=== PATIENT | female | born 1995 | race Hispanic/Latino ===

== ENCOUNTER 2018-07-22 09:37 | Emergency (ER) | payer SELFPAY ==
[2018-07-22] MEDS ORDERED: PROTONIX IV ONE ×2 (10:01→11:19)
[2018-07-22] MEDS ORDERED: ZOFRAN IV ONE ×2 (10:01→10:55)
[2018-07-22] MEDS ORDERED: NACL 0.9% 1000 ML 1,000 ML IV ONE (10:01)
--- NOTE | 2018-07-22 10:04 | Emergency Department Report ---
HPI - General Chief Complaint: Abdominal Pain Time Seen by Provider: 07/22/18 09:55 - HPI HPI: 22-year-old female presents to the emergency department with complaint of middle abdominal pain, mostly on the right side, that has been going on since last night. It is associated with some nausea without vomiting. She has a diagnosed history of IBS. She also has a history of PTSD that manifests at least partially as abdominal pain. She follows with [facility], Dr. Hugo. She says that she sometimes will be on acid reducers, PPI, for her symptoms but does not have any of that medication at this time. She also takes Trileptal and Lexapro for the PTSD but thinks it may be the medication is not as effective. She denies any recent diarrhea, constipation, dysuria, vaginal bleeding or discharge, fever. ED Past Medical Hx - Past Medical History Additional medical history: IBS, GERD PTSD - Surgical History Past Surgical History?: No - Social History Smoking Status: Former Smoker Substance Use Type: None - Medications Home Medications: Home Medications Medication Instructions Recorded Confirmed Last Taken Type Doxycycline [Vibramycin CAP] 100 mg PO Q12HR #14 capsule 07/22/18 Unknown Rx Ondansetron [Zofran Odt] 4 mg PO Q8HR PRN #20 tab.rapdis 07/22/18 Unknown Rx Pantoprazole [Protonix] 40 mg PO QDAY #20 tablet 07/22/18 Unknown Rx ED Review of Systems ROS: Stated complaint: ABD PAIN Other details as noted in HPI Comment: All other systems reviewed and negative Constitutional: denies: chills, fever Eyes: denies: eye pain, vision change ENT: denies: ear pain, throat pain Respiratory: denies: cough, shortness of breath Cardiovascular: denies: chest pain, palpitations Gastrointestinal: abdominal pain, nausea. denies: vomiting Genitourinary: denies: dysuria, discharge Musculoskeletal: denies: back pain, arthralgia Skin: denies: rash, lesions Neurological: denies: headache, numbness Physical Exam - Physical Exam Vital Signs: Vital Signs 07/22/18 09:39 Temperature 98 F Pulse Rate 84 Respiratory 18 Rate Blood Pressure 129/81 O2 Sat by Pulse 95 Oximetry Physical Exam: GENERAL: The patient is well-developed well-nourished. HEENT: Normocephalic. Atraumatic. Patient has moist mucous membranes. EYES: Extraocular motions are intact. NECK: Supple. Trachea is midline. CHEST/LUNGS: Clear to auscultation. There is no respiratory distress noted. HEART/CARDIOVASCULAR: Regular. There is no tachycardia. There is no obvious murmur. ABDOMEN: Abdomen is soft. Minimal right abdominal tenderness to palpation. No guarding. Patient has normal bowel sounds. There is no abdominal distention. SKIN: Skin is warm and dry. NEURO: The patient is awake, alert, and oriented. The patient is cooperative. The patient has normal speech. MUSCULOSKELETAL: There is no tenderness or deformity. There is no limitation range of motion. There is no evidence of acute injury. ED Course Vital Signs 07/22/18 09:39 Temperature 98 F Pulse Rate 84 Respiratory 18 Rate Blood Pressure 129/81 O2 Sat by Pulse 95 Oximetry ED Medical Decision Making - Lab Data Result diagrams: 07/22/18 10:05 07/22/18 10:05 - Medical Decision Making the patient has a history of irritable bowel syndrome but also has a history of having gastrointestinal issues secondary to PTSD. On examination she has some tenderness to palpation to the right middle abdomen but the abdomen is otherwise soft, nondistended and nontoxic in appearance. Patient's labs have been unremarkable including CBC, CMP, lipase, urinalysis and the patient is not . She was given some IV fluid resuscitation, H2 mallory, PPI and antinausea medication and now is feeling much better. It was later told me that the patient recently was treated for gonorrhea with what sounds like azithromycin but she says that she is still having some greenish discharge. Her Pain is more abdominal than pelvic. She is afebrile and does not have any leukocytosis. This does not appear consistent with PID. She will be placed on doxycycline to further treat this vaginal discharge present STD diagnosis. The patient has good follow-up with gastroenterology and it appears that she is due for a follow-up visit with him. She will be given a prescription for a PPI, Zofran ODT, on top of the antibiotic. I recommended that she pepper picker a probiotic. - Differential Diagnosis IBS, PID, Colitis, Appendicitis, Gastroparesis. Critical Care Time: No Critical care attestation.: If time is entered above; I have spent that time in minutes in the direct care of this critically ill patient, excluding procedure time. 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 Please start taking a probiotic. Return to the emergency Department with any worsening of your symptoms or any acute distress. Avoid any foods that are acidic, tomato-based, spicy, and avoid alcohol. This antibiotic, doxycycline, can make you more susceptible to UV light and/or sunlight and therefore you need to wear sunscreen if you go outside. Prescriptions: Doxycycline [Vibramycin CAP] 100 mg PO Q12HR #14 capsule Ondansetron [Zofran Odt] 4 mg PO Q8HR PRN #20 tab.rapdis PRN Reason: Nausea Pantoprazole [Protonix] 40 mg PO QDAY #20 tablet Referrals: PRIMARY CAREMD [Primary Care Provider] - 3-5 Days ALYSON HUGO MD [Staff Physician] - 3-5 Days Time of Disposition: 12:03
[2018-07-22 10:24] LABS: Basophils % (Auto) 0.8 % (0.0-1.8); Eosinophils # (Auto) 0.1 K/mm3 (0.0-0.4); Eosinophils % (Auto) 1.8 % (0.0-4.3); Hematocrit 37.6 % (30.3-42.9); Hemoglobin 12.7 gm/dl (10.1-14.3); Lymphocytes # (Auto) 2.2 K/mm3 (1.2-5.4); Lymphocytes % (Auto) 34.3 % (13.4-35.0); Mean Corpuscular HGB Conc 34 % (30-34); Mean Corpuscular Volume 98 fl (79-97); Monocytes # (Auto) 0.5 K/mm3 (0.0-0.8); Monocytes % (Auto) 7.8 % (0.0-7.3); Platelet Count 236 K/mm3 (140-440); Red Blood Count 3.85 M/mm3 (3.65-5.03)
[2018-07-22 11:03] LABS: BUN/Creatinine Ratio 22; Blood Urea Nitrogen 13 mg/dL (7-17); Calcium 8.8 mg/dL (8.4-10.2); Hemolysis Index 2
[2018-07-22 11:18] LABS: Bacteria,Urine 2+ /HPF (Negative); Bilirubin,Urine NEG (Negative); Blood,Urine NEG (Negative); Color,Urine Yellow (Yellow); Mucus,Urine 2+ /HPF; Protein,Urine <15 mg/dL mg/dL (Negative); Urobilinogen,Urine < 2.0 mg/dL (<2.0)
[2018-07-22] MEDS ORDERED: PEPCID IV ONE (11:19)
[2018-07-22 11:26] LABS: Alanine Aminotransferase 29 units/L (7-56); Albumin 4.3 g/dL (3.9-5)
[2018-07-22 11:28] LABS: Bilirubin,Direct < 0.2 mg/dL (0-0.2)
[2018-07-22 11:36] VITALS: BP 116/75
== END 2018-07-22 12:20 | disposition home or self-care (01) ==
LOC: ED 09:37
DX: R10.9 Unspecified abdominal pain (principal); R11.0 Nausea; K21.9 Gastro-esophageal reflux disease without esophagitis; F43.10 Post-traumatic stress disorder, unspecified; Z87.19 Personal history of other diseases of the digestive system; Z87.891 Personal history of nicotine dependence
CPT/HCPCS: 36415; 80048; 80076; 81001; 83690; 84703; 85025; 96374; 96375; 96376; 99283; C9113; J2405; J7030

== ENCOUNTER 2018-08-29 07:41 | Emergency (ER) | payer BC, OTHER ==
[2018-08-29] MEDS ORDERED: ZOFRAN ORAL LIQ PO ONE (08:12)
[2018-08-29] MEDS ORDERED: CARAFATE PO STA (08:12)
--- NOTE | 2018-08-29 08:13 | Emergency Department Report ---
ED General Adult HPI - General Chief complaint: Abdominal Pain Stated complaint: VOMITING Time Seen by Provider: 08/29/18 07:57 Source: patient, RN notes reviewed, old records reviewed Mode of arrival: Ambulatory Limitations: No Limitations - History of Present Illness Initial comments: Gastroenterology: Dr MCKEON This is a pleasant 22-year-old female who is not known to this provider previously. The patient reports a past medical history of irritable bowel syndrome, diagnosed approximately 2 years ago, and reports negative colonoscopy, 2 years ago. The patient presents to the emergency room with a complaint of nausea, vomiting. She reports 2 episodes of nonbloody, nonbilious emesis this morning. It is now resolved. It is associated with crampy abdominal discomfort, now resolved. She had 2 episodes yesterday as well. The patient makes no complaint of headache, neck pain, chest pain, shortness of breath, urinary symptoms. The patient is not nauseous or vomiting currently. She has no abdominal pain currently. 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 The patient was given Zofran, Carafate, which she reports markedly improved her symptoms, and she now reports readiness for discharge. -: Gradual Consistency: intermittent Improves with: medication Associated Symptoms: denies other symptoms, nausea/vomiting - Related Data Previous Rx's Medication Instructions Recorded Last Taken Type Doxycycline [Vibramycin CAP] 100 mg PO Q12HR #14 capsule 07/22/18 Unknown Rx Ondansetron [Zofran Odt] 4 mg PO Q8HR PRN #20 tab.rapdis 07/22/18 Unknown Rx Pantoprazole [Protonix] 40 mg PO QDAY #20 tablet 07/22/18 Unknown Rx Famotidine [Pepcid] 20 mg PO BID #60 tablet 08/29/18 Unknown Rx Ondansetron [Zofran Odt] 4 mg PO Q8HR PRN #20 tab.rapdis 08/29/18 Unknown Rx Allergies Allergy/AdvReac Type Severity Reaction Status Date / Time No Known Allergies Allergy Unverified 08/29/18 07:53 ED Review of Systems ROS: Stated complaint: VOMITING Other details as noted in HPI Constitutional: denies: fever Eyes: denies: vision change ENT: denies: epistaxis Respiratory: denies: cough Cardiovascular: denies: chest pain Gastrointestinal: abdominal pain, nausea, vomiting. denies: constipation, hematemesis, melena, hematochezia Genitourinary: denies: dysuria Musculoskeletal: denies: back pain Skin: denies: lesions Neurological: denies: weakness Psychiatric: denies: anxiety ED Past Medical Hx - Past Medical History Previous Medical History?: Yes Additional medical history: IBS, GERD PTSD - Social History Smoking Status: Former Smoker - Medications Home Medications: Home Medications Medication Instructions Recorded Confirmed Last Taken Type Doxycycline [Vibramycin CAP] 100 mg PO Q12HR #14 capsule 07/22/18 Unknown Rx Ondansetron [Zofran Odt] 4 mg PO Q8HR PRN #20 tab.rapdis 07/22/18 Unknown Rx Pantoprazole [Protonix] 40 mg PO QDAY #20 tablet 07/22/18 Unknown Rx Famotidine [Pepcid] 20 mg PO BID #60 tablet 08/29/18 Unknown Rx Ondansetron [Zofran Odt] 4 mg PO Q8HR PRN #20 tab.rapdis 08/29/18 Unknown Rx ED Physical Exam - General Limitations: No Limitations General appearance: alert, in no apparent distress - Head Head exam: Present: atraumatic, normocephalic - Eye Eye exam: Present: normal appearance, EOMI - ENT ENT exam: Present: normal exam, normal orophraynx, mucous membranes moist, normal external ear exam - Neck Neck exam: Present: normal inspection, full ROM. Absent: tenderness, meningismus - Respiratory Respiratory exam: Present: normal lung sounds bilaterally. Absent: respiratory distress - Cardiovascular Cardiovascular Exam: Present: regular rate, normal rhythm, normal heart sounds. Absent: bradycardia, tachycardia, irregular rhythm, systolic murmur, diastolic murmur, rubs, gallop - GI/Abdominal GI/Abdominal exam: Present: soft. Absent: distended, tenderness, guarding, rebound, rigid, pulsatile mass - Extremities Exam Extremities exam: Present: normal inspection, full ROM, other (2+ pulses noted in the bilateral upper, lower extremities. Compartments soft. No long bony tenderness. The pelvis is stable.). Absent: pedal edema, joint swelling, calf tenderness - Back Exam Back exam: Present: normal inspection, full ROM. Absent: tenderness, CVA tenderness (R), paraspinal tenderness, vertebral tenderness - Neurological Exam Neurological exam: Present: alert, normal gait, other (Extraocular movements intact. Tongue midline. No facial droop. Facial sensation intact to light touch in the V1, V2, V3 distribution bilaterally. 5 and 5 strength in 4 extremities.. Sensation is intact to light touch in 4 extremities.). Absent: motor sensory deficit - Psychiatric Psychiatric exam: Present: normal affect, normal mood - Skin Skin exam: Present: warm, dry, intact, normal color. Absent: rash ED Course Vital Signs 08/29/18 08:07 Temperature 98.0 F Pulse Rate 89 Respiratory 18 Rate Blood Pressure 116/60 [Right] O2 Sat by Pulse 99 Oximetry ED Medical Decision Making - Lab Data Vital Signs 08/29/18 08:07 Temperature 98.0 F Pulse Rate 89 Respiratory 18 Rate Blood Pressure 116/60 [Right] O2 Sat by Pulse 99 Oximetry Lab Results 08/29/18 Range/Units 08:27 Urine Color Yellow (Yellow) Urine Turbidity Clear (Clear) Urine pH 6.0 (5.0-7.0) Ur Specific [place] 1.021 (1.003-1.030) Urine Protein <15 mg/dl (Negative) mg/dL Urine Glucose (UA) Neg (Negative) mg/dL Urine Ketones Neg (Negative) mg/dL Urine Blood Neg (Negative) Urine Nitrite Neg (Negative) Urine Bilirubin Neg (Negative) Urine Urobilinogen < 2.0 (<2.0) mg/dL Ur Leukocyte Esterase Neg (Negative) Urine WBC (Auto) < 1.0 (0.0-6.0) /HPF Urine RBC (Auto) 1.0 (0.0-6.0) /HPF U Epithel Cells (Auto) 1.0 (0-13.0) /HPF Urine Mucus Few /HPF Urine HCG, Qual Negative (Negative) Laboratory studies from last month are reviewed and appreciated. 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 She is noted to be laughing and joking with staff members, and she is in no acute distress. Abdomen is soft and benign, with no rebound, guarding or peritoneal signs. Had basically unremarkable laboratory studies last month. Patient tolerating liquid feeds at this time, and is in no acute distress. 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 Critical care attestation.: If time is entered above; I have spent that time in minutes in the direct care of this critically ill patient, excluding procedure time. ED Disposition Clinical Impression: History of nausea and vomiting Disposition: DC- TO HOME OR SELFCARE Is pt being admited?: No Does the pt Need Aspirin: No Condition: Stable Instructions: Abdominal Pain (ED) Additional Instructions: Avoid consumption of Motrin, ibuprofen, Naprosyn, Aleve, heavy, spicy foods. Advance diet as tolerated, drink 4-6 cups of water per day, eat plenty of fiber, fruits, vegetables. Follow up with your primary care doctor or gastro enterologist within the next 4-6 weeks. Return to the emergency room right away with new, worsening or different symptoms, or symptoms not present on the initial ER evaluation. Referrals: ALYSON MCKEON MD [Staff Physician] - as needed
[2018-08-29 08:22] VITALS: BP 116/60
[2018-08-29 08:51] LABS: Bilirubin,Urine NEG (Negative); Blood,Urine NEG (Negative); Color,Urine Yellow (Yellow); Mucus,Urine FEW /HPF; Protein,Urine <15 mg/dL mg/dL (Negative); Urobilinogen,Urine < 2.0 mg/dL (<2.0); WBC,Urine < 1.0 /HPF (0.0-6.0)
[2018-08-29 08:55] LABS: HCG Qualitative,Urine Negative (Negative)
== END 2018-08-29 09:29 | disposition home or self-care (01) ==
LOC: ED 07:41
DX: R11.2 Nausea with vomiting, unspecified (principal); R10.9 Unspecified abdominal pain; K58.9 Irritable bowel syndrome, unspecified; K21.9 Gastro-esophageal reflux disease without esophagitis; F43.10 Post-traumatic stress disorder, unspecified; Z87.891 Personal history of nicotine dependence
CPT/HCPCS: 81001; 81025; 99283; Q0162

== ENCOUNTER 2018-09-10 10:24 | Emergency (ER) | payer BC ==
[2018-09-10 10:30] VITALS: BP 123/58
[2018-09-10] MEDS ORDERED: BACTRIM DS PO ONE (10:50)
[2018-09-10] MEDS ORDERED: DELTASONE PO ONE (10:50)
--- NOTE | 2018-09-10 11:00 | Emergency Department Report ---
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 She denies any trauma and woke up with these symptoms.she has not taken anything for her symptoms prior to arrival. She has a past medical history IBS. She denies any fever. ED Past Medical Hx - Past Medical History Previous Medical History?: Yes Additional medical history: IBS, GERD PTSD - Surgical History Past Surgical History?: Yes Additional Surgical History: left foot - Social History Smoking Status: Never Smoker Substance Use Type: None - Medications Home Medications: Home Medications Medication Instructions Recorded Confirmed Last Taken Type Doxycycline [Vibramycin CAP] 100 mg PO Q12HR #14 capsule 07/22/18 Unknown Rx Ondansetron [Zofran Odt] 4 mg PO Q8HR PRN #20 tab.rapdis 07/22/18 Unknown Rx Pantoprazole [Protonix] 40 mg PO QDAY #20 tablet 07/22/18 Unknown Rx Famotidine [Pepcid] 20 mg PO BID #60 tablet 08/29/18 Unknown Rx Ondansetron [Zofran Odt] 4 mg PO Q8HR PRN #20 tab.rapdis 08/29/18 Unknown Rx Prednisone [predniSONE 5 mg (6-Day 5 mg PO .TAPER #1 tab.ds.pk 09/10/18 Unknown Rx Pack, 21 Tabs)] Sulfamethoxazole/Trimethoprim 1 each PO BID #14 tablet 09/10/18 Unknown Rx [Bactrim DS TAB] ED Review of Systems ROS: Stated complaint: LFT ARM SWELLING/PAIN Other details as noted in HPI Comment: All other systems reviewed and negative Constitutional: denies: chills, fever Eyes: denies: eye pain, vision change ENT: denies: ear pain, throat pain Respiratory: denies: cough, shortness of breath Cardiovascular: denies: chest pain, palpitations Gastrointestinal: denies: abdominal pain, vomiting Genitourinary: denies: urgency, dysuria Musculoskeletal: denies: back pain, joint swelling Skin: rash, pruritus Neurological: denies: headache, weakness Physical Exam - Physical Exam Vital Signs: Vital Signs 09/10/18 10:28 Temperature 97.5 F L Pulse Rate 77 Respiratory 18 Rate Blood Pressure 123/58 O2 Sat by Pulse 96 Oximetry Physical Exam: GENERAL: The patient is well-developed well-nourished. HEENT: Normocephalic. Atraumatic. Patient has moist mucous membranes. EYES: Extraocular motions are intact. NECK: Supple. Trachea is midline. CHEST/LUNGS: Clear to auscultation. There is no respiratory distress noted. HEART/CARDIOVASCULAR: Regular. There is no tachycardia. There is no obvious murmur. ABDOMEN: There is no abdominal distention. SKIN: There is an area of erythema to the left dorsal proximal forearm that is about 5 inches in its greatest diameter. This area also appears to have subcutaneous swelling. NEURO: The patient is awake, alert, and oriented. The patient is cooperative. The patient has no focal neurologic deficits. The patient has normal speech. MUSCULOSKELETAL: There is some tenderness to palpation to the left proximal forearm where the patient appears to have a cellulitis and some swelling. There is no limitation range of motion. Radial pulse +2 over 4 and capillary refill less than 2 seconds to the affected left upper extremity. ED Course Vital Signs 09/10/18 10:28 Temperature 97.5 F L Pulse Rate 77 Respiratory 18 Rate Blood Pressure 123/58 O2 Sat by Pulse 96 Oximetry ED Medical Decision Making - Medical Decision Making The patient woke from sleep with an area of erythema and swelling, some tenderness to palpation, to the left proximal dorsal forearm. It appears consistent with a cellulitis. The swelling could be secondary to the cellulitis or some type of insect bite, although there is no bite or sting osman or lesions seen. Vital signs stable including being afebrile. Some of the surrounding redness also is slightly less erythematous and has more of an appearance of a histamine reaction. Patient will be treated with both antibiotics and steroids. She will use some ice for the swelling. We discussed monitoring for worsening of infection or things like lymphangitis. There does not appear to be any current fluctuance or signs of underlying abscess. She will return to the ER with any worsening of her symptoms or any acute distress. - Differential Diagnosis cellulitis, allergic reaction, insect bite, abscess Critical Care Time: No Critical care attestation.: If time is entered above; I have spent that time in minutes in the direct care of this critically ill patient, excluding procedure time. 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 Return to the emergency department with any worsening of this rash, especially if it is starting to radiate up your arm, development of fever, any acute distress. Take the antibiotics and steroids as prescribed. You can add some [id number] Benadryl as it also has an appearance of a histamine reaction/allergic reaction. Prescriptions: Sulfamethoxazole/Trimethoprim [Bactrim DS TAB] 1 each PO BID #14 tablet Prednisone [predniSONE 5 mg (6-Day Pack, 21 Tabs)] 5 mg PO .TAPER #1 tab.ds.pk Referrals: PRIMARY CARE, [Primary Care Provider] - 2-3 Days Forms: Work/School Release Form(ED) Time of Disposition: 11:11
== END 2018-09-10 11:19 | disposition home or self-care (01) ==
LOC: ED 10:24
DX: L03.114 Cellulitis of left upper limb (principal); K21.9 Gastro-esophageal reflux disease without esophagitis
CPT/HCPCS: 99283; J7512

== ENCOUNTER 2018-10-10 10:44 | Emergency (ER) | payer BC ==
[2018-10-10 10:50] VITALS: BP 110/79
[2018-10-10 11:33] LABS: Bilirubin,Urine NEG (Negative); Blood,Urine LG (Negative); Calcium Oxalate Crystals,Urine 1+; Color,Urine Yellow (Yellow); Mucus,Urine 2+ /HPF; Protein,Urine <15 mg/dL mg/dL (Negative); Urobilinogen,Urine < 2.0 mg/dL (<2.0)
--- NOTE | 2018-10-10 12:13 | Emergency Department Report ---
ED General Adult HPI - General Chief complaint: Urogenital-Female Stated complaint: PROBLEM URINATING Source: patient Mode of arrival: Ambulatory Limitations: No Limitations - History of Present Illness Initial comments: Patient presents to the emergency department with a chief complaint of difficulty with urination. Patient denies any pain on urination but states that she just cannot go. Patient is currently taking Bactrim. -: Sudden Radiation: non-radiation Severity scale (0 -10): 0 Consistency: constant Improves with: none Worsens with: none Associated Symptoms: denies other symptoms Treatments Prior to Arrival: none - Related Data Previous Rx's Medication Instructions Recorded Last Taken Type DOXYCYCLINE Hyclate [Vibramycin 100 mg PO Q12HR #14 capsule 07/22/18 Unknown Rx CAP] Ondansetron [Zofran Odt] 4 mg PO Q8HR PRN #20 tab.rapdis 07/22/18 Unknown Rx Pantoprazole [Protonix] 40 mg PO QDAY #20 tablet 07/22/18 Unknown Rx Famotidine [Pepcid] 20 mg PO BID #60 tablet 08/29/18 Unknown Rx Ondansetron [Zofran Odt] 4 mg PO Q8HR PRN #20 tab.rapdis 08/29/18 Unknown Rx Prednisone [predniSONE 5 mg (6-Day 5 mg PO .TAPER #1 tab.ds.pk 09/10/18 Unknown Rx Pack, 21 Tabs)] Sulfamethoxazole/Trimethoprim 1 each PO BID #14 tablet 09/10/18 Unknown Rx [Bactrim DS TAB] Naproxen [Naprosyn] 500 mg PO BID #20 tablet 09/26/18 Unknown Rx predniSONE [Prednisone] 50 mg PO DAILY #5 tablet 09/26/18 Unknown Rx Allergies Allergy/AdvReac Type Severity Reaction Status Date / Time No Known Allergies Allergy Verified 09/10/18 10:30 ED Review of Systems ROS: Stated complaint: PROBLEM URINATING Other details as noted in HPI Constitutional: denies: chills, fever Eyes: denies: eye pain, eye discharge, vision change ENT: denies: ear pain, throat pain Respiratory: denies: cough, shortness of breath, wheezing Cardiovascular: denies: chest pain, palpitations Endocrine: no symptoms reported Gastrointestinal: denies: abdominal pain, nausea, diarrhea Genitourinary: other (difficulty urinating). denies: urgency, dysuria, discharg e Musculoskeletal: denies: back pain, joint swelling, arthralgia Skin: denies: rash, lesions Neurological: denies: headache, weakness, paresthesias Psychiatric: denies: anxiety, depression Hematological/Lymphatic: denies: easy bleeding, easy bruising ED Past Medical Hx - Past Medical History Previous Medical History?: Yes Additional medical history: IBS, GERD PTSD - Surgical History Past Surgical History?: Yes Additional Surgical History: left foot - Social History Smoking Status: Never Smoker Substance Use Type: None - Medications Home Medications: Home Medications Medication Instructions Recorded Confirmed Last Taken Type DOXYCYCLINE Hyclate [Vibramycin 100 mg PO Q12HR #14 capsule 07/22/18 Unknown Rx CAP] Ondansetron [Zofran Odt] 4 mg PO Q8HR PRN #20 tab.rapdis 07/22/18 Unknown Rx Pantoprazole [Protonix] 40 mg PO QDAY #20 tablet 07/22/18 Unknown Rx Famotidine [Pepcid] 20 mg PO BID #60 tablet 08/29/18 Unknown Rx Ondansetron [Zofran Odt] 4 mg PO Q8HR PRN #20 tab.rapdis 08/29/18 Unknown Rx Prednisone [predniSONE 5 mg (6-Day 5 mg PO .TAPER #1 tab.ds.pk 09/10/18 Unknown Rx Pack, 21 Tabs)] Sulfamethoxazole/Trimethoprim 1 each PO BID #14 tablet 09/10/18 Unknown Rx [Bactrim DS TAB] Naproxen [Naprosyn] 500 mg PO BID #20 tablet 09/26/18 Unknown Rx predniSONE [Prednisone] 50 mg PO DAILY #5 tablet 09/26/18 Unknown Rx ED Physical Exam - General Limitations: No Limitations General appearance: alert - Head Head exam: Present: atraumatic, normocephalic - Eye Eye exam: Present: normal appearance, PERRL, EOMI - ENT ENT exam: Present: mucous membranes dry - Neck Neck exam: Present: normal inspection - Respiratory Respiratory exam: Present: normal lung sounds bilaterally. Absent: respiratory distress - Cardiovascular Cardiovascular Exam: Present: regular rate, normal rhythm. Absent: systolic murmur, diastolic murmur, rubs, gallop - GI/Abdominal GI/Abdominal exam: Present: soft, normal bowel sounds. Absent: distended, tenderness - Extremities Exam Extremities exam: Present: normal inspection - Back Exam Back exam: Present: normal inspection - Neurological Exam Neurological exam: Present: alert, oriented X3, CN II-XII intact. Absent: motor sensory deficit - Psychiatric Psychiatric exam: Present: normal affect, normal mood - Skin Skin exam: Present: warm, dry, intact, normal color. Absent: rash ED Course Vital Signs 10/10/18 10:47 Temperature 98.9 F Pulse Rate 98 H Respiratory 16 Rate Blood Pressure 110/79 O2 Sat by Pulse 99 Oximetry ED Medical Decision Making - Lab Data Lab Results 10/10/18 Range/Units Unknown Urine Color Yellow (Yellow) Urine Turbidity Slightly-cloudy (Clear) Urine pH 6.0 (5.0-7.0) Ur Specific [place] 1.020 (1.003-1.030) Urine Protein <15 mg/dl (Negative) mg/dL Urine Glucose (UA) Neg (Negative) mg/dL Urine Ketones Neg (Negative) mg/dL Urine Blood Lg (Negative) Urine Nitrite Neg (Negative) Urine Bilirubin Neg (Negative) Urine Urobilinogen < 2.0 (<2.0) mg/dL Ur Leukocyte Esterase Neg (Negative) Urine WBC (Auto) 2.0 (0.0-6.0) /HPF Urine RBC (Auto) 6.0 (0.0-6.0) /HPF U Epithel Cells (Auto) 2.0 (0-13.0) /HPF Calcium Oxalate Crystal 1+ Urine Mucus 2+ /HPF - Medical Decision Making Results discussed with patient Critical care attestation.: If time is entered above; I have spent that time in minutes in the direct care of this critically ill patient, excluding procedure time. ED Disposition Clinical Impression: Dysuria Disposition: DC-01 TO HOME OR SELFCARE Is pt being admited?: No Does the pt Need Aspirin: No Condition: Stable Instructions: Dysuria (ED) Referrals: ANA ANN MD [Primary Care Provider] - 3-5 Days ANITA MOON MD [Staff Physician] - 3-5 Days [facility] [Provider Group] - 3-5 Days [facility] [Provider Group] - 3-5 Days Time of Disposition: 12:12
== END 2018-10-10 12:15 | disposition home or self-care (01) ==
LOC: ED 10:44
DX: R30.0 Dysuria (principal); K21.9 Gastro-esophageal reflux disease without esophagitis
CPT/HCPCS: 81001; 87086; 99283

== ENCOUNTER 2020-04-14 19:07 | Emergency (ER) | payer SELFPAY ==
[2020-04-14 19:29] VITALS: BP 122/63
[2020-04-14] MEDS ORDERED: ONDANSETRON 4 MG ODT TAB PO ONE (19:49)
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
--- NOTE | 2020-04-14 20:27 | XRay Report ---
RIGHT FOREARM 2 VIEWS INDICATION / CLINICAL INFORMATION: right forearm pain, COMPARISON: 09/26/2018 FINDINGS: BONES / JOINT(S): No acute fracture or subluxation. No significant arthritis. SOFT TISSUES: No significant abnormality. ADDITIONAL FINDINGS: None. Signer Name: Michael Harris MD Signed: 04/14/2020 8:22 PM Workstation Name: [id number]
== END 2020-04-14 21:04 | disposition home or self-care (01) ==
LOC: ED 19:07
DX: S50.11XA Contusion of right forearm, initial encounter (principal); T22.111A Burn of first degree of right forearm, initial encounter; F41.9 Anxiety disorder, unspecified; K21.9 Gastro-esophageal reflux disease without esophagitis; F12.90 Cannabis use, unspecified, uncomplicated; Z79.899 Other long term (current) drug therapy; Z98.890 Other specified postprocedural states; V49.49XA Driver injured in collision with other motor vehicles in traffic accident, initial encounter; Y92.410 Unspecified street and highway as the place of occurrence of the external cause; Y93.89 Activity, other specified; Y99.8 Other external cause status
CPT/HCPCS: Q0162